=== PATIENT | male | born 2000 | race Caucasian/White ===

== ENCOUNTER 2018-05-03 17:00 | Emergency (ER) | payer OTHER ==
[~2018-05-03] VITALS: Ht 185.4 cm; Wt 87.7 kg
[2018-05-03 17:12] VITALS: BP 119/73
== END 2018-05-03 18:13 | disposition home or self-care (01) ==
LOC: ED 18:06
DX: J06.9 Acute upper respiratory infection, unspecified (principal); B34.9 Viral infection, unspecified
CPT/HCPCS: 71046; 99283

== ENCOUNTER 2018-09-19 14:32 | Emergency (ER) | payer MEDICAID ==
[~2018-09-19] VITALS: Ht 185.4 cm; Wt 85.0 kg
--- NOTE | 2018-09-19 16:25 | NUR ---
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
--- NOTE | 2018-09-19 16:40 | NUR ---
PT. REMAINS A & O X 4 WITH C/O LEFT FLANK AND BACK PAIN X TODAY. PT. HAS CHRONIC BACK PAIN. UA REQUESTED. PT. IS PINK, WARM AND DRY. LUNGS ARE CTA. MM ARE PINK AND MOIST WITH PULSES +2 THROUGHOUT. PT. HAS A BLANKET FOR WARMTH. SIDERAILS REMAIN UP X 2 WITH THE CALL LIGHT IN PLACE.
[2018-09-19] MEDS ORDERED: KETOROLAC 30 MG/1 ML ONE (17:38)
--- NOTE | 2018-09-19 17:46 | NUR ---
PT.'S VITALS ARE STABLE. UA SENT. PT. WAS MEDICATED FOR PAIN ORDERED.
[2018-09-19 17:56] LABS: MICROSCOPIC INDICATED
[2018-09-19 17:58] LABS: CULTURE INDICATED? NO
[2018-09-19] MEDS ORDERED: KETOROLAC 30 MG/1 ML IM ONE (18:00)
[2018-09-19 19:01] VITALS: BP 129/50
== END 2018-09-19 19:02 | disposition home or self-care (01) ==
LOC: ED 18:02
DX: S29.012A Strain of muscle and tendon of back wall of thorax, initial encounter (principal); R10.9 Unspecified abdominal pain; X58.XXXA Exposure to other specified factors, initial encounter; Y93.89 Activity, other specified; Y92.89 Other specified places as the place of occurrence of the external cause; Y99.8 Other external cause status
CPT/HCPCS: 71045; 81001; 93005; 96372; 99284; J1885

== ENCOUNTER 2020-01-26 20:39 | Emergency (ER) | payer MEDICAID ==
[~2020-01-26] VITALS: Ht 185.4 cm; Wt 101.7 kg
--- NOTE | 2020-01-26 20:50 | NUR ---
ANIYAH RN: EKG DONE IN TRIAGE
--- NOTE | 2020-01-26 21:10 | NUR ---
assumed care of pt. pt here with c/o of generalized weakness x1 day. pt has no other specific c/o. states that he has occasional non-productive cough but is attributing it to allergies. pt is A&O x4. no apparent distress. ambulatory and afebrile. texting on cell phone upon entering room. no family at bedside Meeta MECHANICAL SPREADER OPERATOR at bedside for landry
[2020-01-26] MEDS ORDERED: MELO15TA6 PO (21:19)
[2020-01-26] MEDS ORDERED: TOPI25TA32 PO (21:19)
[2020-01-26] MEDS ORDERED: CYCL5TAB PO (21:19)
[2020-01-26 22:08] VITALS: BP 125/57
== END 2020-01-26 22:12 | disposition home or self-care (01) ==
LOC: ED 22:10
DX: B34.9 Viral infection, unspecified (principal); R94.39 Abnormal result of other cardiovascular function study; R53.83 Other fatigue; R05 Cough; R94.31 Abnormal electrocardiogram [ECG] [EKG]
CPT/HCPCS: 93005; 99283